=== PATIENT | male | born 1965 | race Caucasian/White ===

== ENCOUNTER 2016-11-21 06:43 | Day surgery (SDC) | payer OTHER ==
[2016-11-21] MEDS ORDERED: NS 500 ML IV 500 ML IV ONE (07:00)
[2016-11-21] MEDS ORDERED: DUREZOL OPHTH 1 DOSE AFFEYE ONE (07:15)
[2016-11-21] MEDS ORDERED: TETRACAINE 0.5% OPHTH 1 DOSE AFFEYE ONE ×2 (07:16→08:40)
[2016-11-21] MEDS ORDERED: VIGAMOX 0.5% OPHTH 1 DOSE AFFEYE ONE ×5 (07:17→09:18)
[2016-11-21] MEDS ORDERED: PROLENSA OPHTH 1 DOSE AFFEYE ONE (07:32)
[2016-11-21] MEDS ORDERED: AK-DILATE 2.5% OPHTH 1 DOSE OP ONE ×3 (07:33→07:38)
[2016-11-21] MEDS ORDERED: MYDRIACIL OPHTH 1 DOSE AFFEYE ONE ×3 (07:33→07:38)
[2016-11-21] MEDS ORDERED: CYCLOGYL 1% OPHTH 1 DOSE OP ONE ×3 (07:33→07:38)
[2016-11-21] MEDS ORDERED: BETADINE OPHTH SOLN 5% EACHEYE ONE (08:41)
[2016-11-21] MEDS ORDERED: AK-DILATE 10% OPHTH 1 DOSE AFFEYE ONE (08:41)
[2016-11-21] MEDS ORDERED: XYLOCAINE-MPF 1% IJ ONE (09:10)
[2016-11-21] MEDS ORDERED: BSS OPHTH (PLAIN) 500 ML with VANCOMYCIN HCL 500 MG VIAL 25 MG, ADRENALINE CHL INJ 1 MG IR ONE ×3 (09:10)
[2016-11-21] MEDS ORDERED: ADRENALINE CHL INJ IJ ONE (09:10)
[2016-11-21] MEDS ORDERED: DUOVISC IO ONE (09:10)
[2016-11-21 10:39] VITALS: BP 140/84
[2016-11-21] MEDS ORDERED: DIPRIVAN VIAL ONE (14:01)
== END 2016-11-21 09:45 | disposition home or self-care (01) ==
LOC: SURG1 06:43
PROVIDERS: ATTEND Ophthalmology
PROC: 08DJ3ZZ Extraction of Right Lens, Percutaneous Approach (ICD-10-PCS; principal; 2016-11-21 07:30)
PROC: 08RJ3JZ Replacement of Right Lens with Synthetic Substitute, Percutaneous Approach (ICD-10-PCS; principal; 2016-11-21 07:30)
DX: H25.011 Cortical age-related cataract, right eye (principal); H25.041 Posterior subcapsular polar age-related cataract, right eye
CPT/HCPCS: A4217; J0170; J3370; J3490